=== PATIENT | male | born 1945 | race African-American/Black ===

== ENCOUNTER 2017-02-02 11:13 | Emergency (ER) | payer OTHER ==
[~2017-02-02] VITALS: Ht 180.3 cm; Wt 80.0 kg
[2017-02-02] MEDS ORDERED: SODIUM CHLORIDE 0.9% 1,000 ML IV ONE (12:25)
[2017-02-02] MEDS ORDERED: ONDANSETRON HCL 4MG/2ML VIAL IV STA (12:25)
[2017-02-02 12:45] LABS: EOSINOPHILS % 0.6 % (0.0-5.0); HEMATOCRIT. 38.8 % (42.0-52.0); HEMOGLOBIN. 12.4 g/dL (14.0-18.0); LYMPHOCYTES % 16.9 % (20.0-50.0); MEAN CORPUSCULAR HEMOGLOBIN 27.7 pg (28.0-32.0); MEAN CORPUSCULAR HGB CONC 31.9 g/dL (31.0-37.0); MEAN CORPUSCULAR VOLUME 87.1 fL (80.0-94.0); MEAN PLATELET VOLUME 9.2 fl (7.4-10.4); MONOCYTES % 6.5 % (2.0-8.0); PLATELET 247 x1000/uL (130-400); RED BLOOD CELL COUNT 4.46 mill/uL (4.7-6.1); RED CELL DISTRIBUTION WIDTH 16.2 % (11.6-14.6)
[2017-02-02 12:55] LABS: INR 1.1; PARTIAL THROMBOPLASTIN TIME 22.4 sec (24.0-34.0); PROTHROMBIN TIME 11.1 sec
[2017-02-02 13:04] LABS: ALANINE AMINOTRANSFERASE 17 IU/L (13-61); ALBUMIN 3.4 g/dL (3.4-5.0); ANION GAP 13; CALCIUM 8.4 mg/dL (8.5-10.1); CARBON DIOXIDE 29 mEq/L (21-32); CHLORIDE 104 mEq/L (98-107); INDEX HEMOLYSI 1 (1-3); INDEX ICTERIC 1 (1-4); INDEX LIPEMIC 1 (1-3); LIPASE 107 IU/L (73-393); TROPONIN I 0.04 ng/mL (0.00-0.04); UREA NITROGEN BLOOD 17 mg/dL (7-21); eGFR > 60 mL/min (>60)
[2017-02-02 14:30] LABS: CLARITY URINE TURBID (CLEAR); COLOR URINE YELLOW (YELLOW); GLUCOSE URINE TRACE (NEGATIVE); KETONES URINE TRACE (NEGATIVE); LEUKOCYTE ESTERASE URINE 3+ (NEGATIVE); NITRITE URINE NEGATIVE (NEGATIVE); OCCULT BLOOD URINE TRACE (NEGATIVE); PROTEIN URINE TRACE (NEGATIVE); SPECIFIC GRAVITY URINE 1.021 (1.005-1.030)
[2017-02-02 14:56] LABS: SQUAMOUS EPITHELIAL CELL URINE RARE /lpf (RARE/1+); WBC URINE TNTC /hpf (0-2)
[2017-02-02 14:57] LABS: BACTERIA URINE 4+
[2017-02-02] MEDS ORDERED: LEVOFLOXACIN 500MG PREMIX 100 ML IV ONE (15:45)
[2017-02-02 16:59] VITALS: BP 168/73
== END 2017-02-02 18:05 | disposition short-term general hospital (02) ==
LOC: ER 11:36
DX: N39.0 Urinary tract infection, site not specified (principal); K52.9 Noninfective gastroenteritis and colitis, unspecified; R19.7 Diarrhea, unspecified; E11.9 Type 2 diabetes mellitus without complications; I10 Essential (primary) hypertension; Z86.73 Personal history of transient ischemic attack (TIA), and cerebral infarction without residual deficits; Z88.2 Allergy status to sulfonamides
CPT/HCPCS: 36415; 71010; 80053; 81001; 82962; 83690; 84484; 85025; 85610; 85730; 87015; 87045; 87427; 87449; 87493; 89055; 93005; 96361; 96365; 96375; 99285; J1956; J2405; J7030

== ENCOUNTER 2019-01-06 07:38 | Emergency (ER) | payer OTHER ==
[~2019-01-06] VITALS: Ht 175.3 cm; Wt 65.0 kg
[2019-01-06] MEDS ORDERED: ACETAMINOPHEN 650MG SUPP PR STA (09:52)
[2019-01-06] MEDS ORDERED: SODIUM CHLORIDE 0.9% 1000ML BAG (SEPSIS BOLUS) IV ONE (10:00)
[2019-01-06 10:39] LABS: CHLORIDE 105 mEq/L (98-107)
[2019-01-06 10:47] LABS: INR 1.1
[2019-01-06 10:48] LABS: BASOPHILS % 0.5 % (0.0-2.0); EOSINOPHILS % 0.1 % (0.0-5.0); HEMATOCRIT. 40.6 % (42.0-52.0); HEMOGLOBIN. 13.3 g/dL (14.0-18.0); MEAN CORPUSCULAR HEMOGLOBIN 28.9 pg (28.0-32.0); MEAN CORPUSCULAR VOLUME 87.9 fL (80.0-94.0); MEAN PLATELET VOLUME 10.2 fl (7.4-10.4); MONOCYTES % 6.1 % (2.0-8.0); NEUTROPHILS % 85.3 % (40.0-76.0); PLATELET 209 x1000/uL (130-400); RED BLOOD CELL COUNT 4.62 mill/uL (4.7-6.1); RED CELL DISTRIBUTION WIDTH 14.6 % (11.6-14.6)
[2019-01-06 11:08] LABS: CLARITY URINE CLEAR (CLEAR); COLOR URINE YELLOW (YELLOW); KETONES URINE 2+ (NEGATIVE); LEUKOCYTE ESTERASE URINE NEGATIVE (NEGATIVE); NITRITE URINE NEGATIVE (NEGATIVE); OCCULT BLOOD URINE 1+ (NEGATIVE); PROTEIN URINE NEGATIVE (NEGATIVE); SPECIFIC GRAVITY URINE 1.019 (1.005-1.030); UROBILINOGEN URINE 0.2 E.U./dL (0.2-1.0)
[2019-01-06] MEDS ORDERED: PIPERACILLIN/TAZ 3.375G PREMIX 50 ML IV ONE (11:30)
[2019-01-06] MEDS ORDERED: VANCOMYCIN 1 G PREMIX 200 ML IV ONE (11:30)
[2019-01-06 16:05] VITALS: BP 135/91
== END 2019-01-06 17:17 | disposition short-term general hospital (02) ==
LOC: ER 07:47 → CANBEDREQ 14:21 → ER 17:17
DX: R65.21 Severe sepsis with septic shock (principal); G93.49 Other encephalopathy; I10 Essential (primary) hypertension; F03.90 Unspecified dementia, unspecified severity, without behavioral disturbance, psychotic disturbance, mood disturbance, and anxiety
CPT/HCPCS: 36415; 70450; 71045; 80053; 81003; 82962; 83605; 84145; 84484; 85025; 85610; 87040; 87086; 87804; 93005; 96361; 96365; 96368; 99291; J2543; J3370; J7030

== ENCOUNTER 2019-11-17 18:05 | Emergency (ER) | payer OTHER ==
[~2019-11-17] VITALS: Ht 180.3 cm; Wt 70.0 kg
[2019-11-17 23:48] LABS: BASOPHILS % 0.8 % (0.0-2.0); EOSINOPHILS % 1.7 % (0.0-5.0); HEMATOCRIT. 41.1 % (42.0-52.0); HEMOGLOBIN. 13.4 g/dL (14.0-18.0); LYMPHOCYTES % 29.2 % (20.0-50.0); MEAN CORPUSCULAR HEMOGLOBIN 28.4 pg (28.0-32.0); MEAN CORPUSCULAR VOLUME 87.3 fL (80.0-94.0); MEAN PLATELET VOLUME 9.4 fl (7.4-10.4); MONOCYTES % 9.8 % (2.0-8.0); NEUTROPHILS % 58.5 % (40.0-76.0); PLATELET 209 x1000/uL (130-400); RED BLOOD CELL COUNT 4.71 mill/uL (4.7-6.1)
[2019-11-17] MEDS ORDERED: DEXTROSE 50% WATER 50ML SYRINGE IV ONE (23:50)
[2019-11-17 23:56] LABS: CHLORIDE 109 mEq/L (98-107)
[2019-11-17 23:58] LABS: PROTHROMBIN TIME 10.5 sec (9.6-11.0)
[2019-11-18] MEDS ORDERED: DEXTROSE 50% WATER 50ML SYRINGE IV ONE (01:15)
[2019-11-18 01:37] VITALS: BP 155/55
== END 2019-11-18 02:37 | disposition short-term general hospital (02) ==
LOC: ER 18:05 → CANBEDREQ 11-18 02:38
DX: E11.649 Type 2 diabetes mellitus with hypoglycemia without coma (principal); D64.9 Anemia, unspecified; Z86.73 Personal history of transient ischemic attack (TIA), and cerebral infarction without residual deficits; Z88.2 Allergy status to sulfonamides
CPT/HCPCS: 36415; 80053; 82962; 85025; 99291

== ENCOUNTER 2021-01-03 14:25 | Emergency (ER) | payer OTHER ==
[~2021-01-03] VITALS: Ht 167.6 cm; Wt 66.0 kg
[2021-01-03] MEDS ORDERED: VANCOMYCIN 1 G PREMIX 200 ML IV ONE (14:45)
[2021-01-03] MEDS ORDERED: PIPERACILLIN/TAZ 3.375G PREMIX 50 ML IV ONE (14:45)
[2021-01-03] MEDS ORDERED: SODIUM CHLORIDE 0.9% 1,000 ML IV ONE ×2 (15:00→20:00)
[2021-01-03 15:53] LABS: BASOPHILS % 0.9 % (0.0-2.0); EOSINOPHILS % 4.6 % (0.0-5.0); HEMATOCRIT. 37.7 % (42.0-52.0); HEMOGLOBIN. 11.9 g/dL (14.0-18.0); LYMPHOCYTES % 28.7 % (20.0-50.0); MEAN CORPUSCULAR HEMOGLOBIN 26.3 pg (28.0-32.0); MEAN CORPUSCULAR VOLUME 83.4 fL (80.0-94.0); MEAN PLATELET VOLUME 9.2 fl (7.4-10.4); MONOCYTES % 10.2 % (2.0-8.0); NEUTROPHILS % 55.6 % (40.0-76.0); PLATELET 228 x1000/uL (130-400); RED BLOOD CELL COUNT 4.52 mill/uL (4.7-6.1); RED CELL DISTRIBUTION WIDTH 16.3 % (11.6-14.6)
[2021-01-03 15:55] LABS: CHLORIDE 107 mEq/L (98-107)
[2021-01-03 15:59] LABS: ETHANOL BLOOD < 10 mg/dL
[2021-01-03 16:03] LABS: CLARITY URINE CLEAR (CLEAR); COLOR URINE YELLOW (YELLOW); KETONES URINE TRACE (NEGATIVE); LEUKOCYTE ESTERASE URINE 1+ (NEGATIVE); NITRITE URINE NEGATIVE (NEGATIVE); OCCULT BLOOD URINE NEGATIVE (NEGATIVE); PH URINE 5.5 (4.5-8.0); PROTEIN URINE NEGATIVE (NEGATIVE); SPECIFIC GRAVITY URINE 1.016 (1.005-1.030)
[2021-01-03 16:15] LABS: INR 1.1; PROTHROMBIN TIME 11.2 sec (9.6-11.0)
[2021-01-03 16:30] LABS: *COCAINE SCREEN URINE NEGATIVE (NEGATIVE)
[2021-01-03 16:31] LABS: *AMPHETAMINES SCREEN URINE NEGATIVE (NEGATIVE); *BARBITURATES SCREEN URINE NEGATIVE (NEGATIVE); *BENZODIAZEPINES SCREEN URINE NEGATIVE (NEGATIVE); CANNABINOID URINE SCREEN NEGATIVE (NEGATIVE); METHADONE URINE SCREEN NEGATIVE (NEGATIVE); OPIATES URINE SCREEN NEGATIVE (NEGATIVE); PHENCYCLIDINE URINE SCREEN NEGATIVE (NEGATIVE)
[2021-01-03 20:00] VITALS: BP 137/61
== END 2021-01-03 20:51 | disposition short-term general hospital (02) ==
LOC: ER 14:25 → EDBEDREQ 14:51 → EDBEDREQSVC 14:51 → EDBEDREQTM 14:51 → ER 20:51 → CANBEDREQ 01-04 09:14
DX: R41.82 Altered mental status, unspecified (principal); E87.2 Acidosis; Z20.822 Contact with and (suspected) exposure to COVID-19; I95.9 Hypotension, unspecified; I69.354 Hemiplegia and hemiparesis following cerebral infarction affecting left non-dominant side; E11.9 Type 2 diabetes mellitus without complications; E78.00 Pure hypercholesterolemia, unspecified; R90.82 White matter disease, unspecified
CPT/HCPCS: 36415; 70450; 71045; 80053; 80305; 80320; 81003; 83605; 84145; 84484; 85025; 85610; 86850; 86900; 86901; 87040; 87077; 87086; 87186; 93005; 96361; 96365; 96375; 99291; C9803; J2543; J3370; U0003; G0480

== ENCOUNTER 2021-01-10 14:26 | Emergency (ER) | payer OTHER, MEDICAID ==
[~2021-01-10] VITALS: Ht 172.7 cm; Wt 64.0 kg
[2021-01-10] MEDS ORDERED: SODIUM CHLORIDE 0.9% 1,000 ML IV ONE ×2 (15:15→16:45)
[2021-01-10 16:23] LABS: EOSINOPHILS % 4.5 % (0.0-5.0); HEMATOCRIT. 35.4 % (42.0-52.0); HEMOGLOBIN. 11.2 g/dL (14.0-18.0); LYMPHOCYTES % 24.5 % (20.0-50.0); MEAN CORPUSCULAR HEMOGLOBIN 26.3 pg (28.0-32.0); MEAN CORPUSCULAR VOLUME 83.4 fL (80.0-94.0); MEAN PLATELET VOLUME 9.5 fl (7.4-10.4); MONOCYTES % 11.1 % (2.0-8.0); NEUTROPHILS % 58.9 % (40.0-76.0); PLATELET 225 x1000/uL (130-400); RED BLOOD CELL COUNT 4.25 mill/uL (4.7-6.1); RED CELL DISTRIBUTION WIDTH 16.8 % (11.6-14.6)
[2021-01-10 16:29] LABS: PROTHROMBIN TIME 10.9 sec (9.6-11.0)
[2021-01-10 16:30] LABS: CHLORIDE 109 mEq/L (98-107)
[2021-01-10] MEDS ORDERED: VANCOMYCIN 1 G PREMIX 200 ML IV NR (17:00)
[2021-01-10] MEDS ORDERED: CEFTRIAXONE 1 G PREMIX 50 ML IV NR (17:00)
[2021-01-10 18:00] VITALS: BP 103/61
== END 2021-01-10 18:15 | disposition short-term general hospital (02) ==
LOC: ER 14:31
DX: R55 Syncope and collapse (principal); E87.2 Acidosis; E11.65 Type 2 diabetes mellitus with hyperglycemia; I95.9 Hypotension, unspecified; E78.00 Pure hypercholesterolemia, unspecified; I10 Essential (primary) hypertension; Z86.73 Personal history of transient ischemic attack (TIA), and cerebral infarction without residual deficits; Z88.2 Allergy status to sulfonamides
CPT/HCPCS: 36415; 70450; 71045; 80053; 83605; 83880; 84484; 85025; 85610; 87040; 93005; 96361; 96374; 99285; J0696; J3370; J7030

== ENCOUNTER 2021-01-12 16:44 | Inpatient (IN) | payer OTHER, MEDICAID ==
[~2021-01-12] VITALS: Ht 165.1 cm; Wt 49.4 kg
[~2021-01-12 16:44] MED LIST: PIPERACILLIN/TAZ 3.375G PREMIX 50 ML IV SCH
[2021-01-12] MEDS ORDERED: SODIUM CHLORIDE 0.9% 1000ML BAG (SEPSIS BOLUS) IV ONE (17:15)
[2021-01-12 17:41] LABS: BASOPHILS % 0.7 % (0.0-2.0); EOSINOPHILS % 1.2 % (0.0-5.0); HEMOGLOBIN. 10.5 g/dL (14.0-18.0); LYMPHOCYTES % 11.2 % (20.0-50.0); MEAN CORPUSCULAR HEMOGLOBIN 25.8 pg (28.0-32.0); MEAN PLATELET VOLUME 9.6 fl (7.4-10.4); NEUTROPHILS % 79.9 % (40.0-76.0); PLATELET 222 x1000/uL (130-400); RED BLOOD CELL COUNT 4.05 mill/uL (4.7-6.1); RED CELL DISTRIBUTION WIDTH 16.5 % (11.6-14.6)
[2021-01-12 17:45] LABS: CHLORIDE 111 mEq/L (98-107); INR 1.1; PROTHROMBIN TIME 11.3 sec (9.6-11.0)
[2021-01-12] MEDS ORDERED: PIPERACILLIN/TAZ 3.375G PREMIX 50 ML IV ONE (18:45)
[2021-01-12] MEDS ORDERED: VANCOMYCIN 1 G PREMIX 200 ML IV ONE (18:45)
[2021-01-12 19:12] LABS: CLARITY URINE CLEAR (CLEAR); COLOR URINE YELLOW (YELLOW); KETONES URINE NEGATIVE (NEGATIVE); LEUKOCYTE ESTERASE URINE TRACE (NEGATIVE); NITRITE URINE NEGATIVE (NEGATIVE); OCCULT BLOOD URINE NEGATIVE (NEGATIVE); PH URINE 6.5 (4.5-8.0); PROTEIN URINE NEGATIVE (NEGATIVE); SPECIFIC GRAVITY URINE 1.011 (1.005-1.030)
[2021-01-12] MEDS ORDERED: HYDROCODONE/ACETAMINOPHEN 5/325MG TABLET PO PRN (21:30)
[2021-01-12] MEDS ORDERED: IPRATROPIUM/ALBUTEROL 0.5-3(2.5)MG/3ML NEB NEB PRN (21:30)
[2021-01-12] MEDS ORDERED: DOCUSATE SODIUM 100MG CAPSULE PO PRN (21:30)
[2021-01-12] MEDS ORDERED: ONDANSETRON HCL 4MG/2ML INJ IV PRN (21:30)
[2021-01-12] MEDS ORDERED: ACETAMINOPHEN 325MG TABLET PO PRN (21:30)
[2021-01-12] MEDS ORDERED: NA PHOS,M-B/NA PHOS,DI-BA ENEMA 118ML PR PRN (21:30)
[2021-01-12] MEDS ORDERED: MAGNESIUM/ALUMINUM HYDROXIDE/SIMETHICONE 30ML UDC PO PRN (21:30)
[2021-01-12] MEDS ORDERED: MORPHINE SULFATE 2 MG/ML CPJ (NOT FOR IM USE) IV PRN (21:30)
[2021-01-12] MEDS ORDERED: CLONIDINE 0.1MG TABLET PO PRN (21:30)
[2021-01-12] MEDS ORDERED: GUAIFENESIN 200MG/10ML SUGAR FREE UDC PO PRN (21:30)
[2021-01-12] MEDS ORDERED: HYDRALAZINE 20MG/ML VIAL IV PRN (21:30)
[2021-01-12] MEDS ORDERED: DEXTROSE 50% WATER 50ML SYRINGE IV PRN (21:30)
[2021-01-12] MEDS: SODIUM CHLORIDE 0.9% INJ 3ML FLUSH IVF SCH (21:36)
[2021-01-12] MEDS: ENOXAPARIN 40MG/0.4ML SYR SUBCUT SCH (21:40)
[2021-01-12] MEDS: DEXT 5%/0.45% NACL 1000ML 1,000 ML IV SCH (21:40)
[2021-01-12 23:31] LABS: CREATINE KINASE 65 IU/L (39-308)
[2021-01-12 23:33] LABS: CREATINE KINASE MB FRACTION 1.5 ng/mL (0.5-3.6)
[2021-01-13] VITALS (11 sets, daily range): BP systolic 109–154; BP diastolic 42–104
[2021-01-13] MEDS ORDERED: PIPERACILLIN/TAZ 3.375G PREMIX 50 ML IV SCH (04:00)
[2021-01-13] MEDS: PIPERACILLIN/TAZOBACTAM 3.375 G in DEXT 5% WATER 100 ML IV SCH ×3 (04:57→21:21)
[2021-01-13] MEDS: SODIUM CHLORIDE 0.9% INJ 3ML FLUSH IVF SCH ×3 (05:00→21:21)
[2021-01-13 05:33] LABS: *AMPHETAMINES SCREEN URINE NEGATIVE (NEGATIVE); *BARBITURATES SCREEN URINE NEGATIVE (NEGATIVE); *BENZODIAZEPINES SCREEN URINE NEGATIVE (NEGATIVE); *COCAINE SCREEN URINE NEGATIVE (NEGATIVE); METHADONE URINE SCREEN NEGATIVE (NEGATIVE); OPIATES URINE SCREEN NEGATIVE (NEGATIVE)
[2021-01-13 05:34] LABS: CANNABINOID URINE SCREEN NEGATIVE (NEGATIVE); PHENCYCLIDINE URINE SCREEN NEGATIVE (NEGATIVE)
[2021-01-13 06:38] LABS: BASOPHILS % 0.6 % (0.0-2.0); EOSINOPHILS % 2.8 % (0.0-5.0); HEMATOCRIT. 32.2 % (42.0-52.0); HEMOGLOBIN. 10.5 g/dL (14.0-18.0); LYMPHOCYTES % 23.8 % (20.0-50.0); MEAN CORPUSCULAR HEMOGLOBIN 26.5 pg (28.0-32.0); MEAN CORPUSCULAR VOLUME 81.4 fL (80.0-94.0); MEAN PLATELET VOLUME 9.5 fl (7.4-10.4); MONOCYTES % 7.4 % (2.0-8.0); NEUTROPHILS % 65.4 % (40.0-76.0); PLATELET 234 x1000/uL (130-400); RED BLOOD CELL COUNT 3.96 mill/uL (4.7-6.1); RED CELL DISTRIBUTION WIDTH 16.7 % (11.6-14.6)
[2021-01-13 06:55] LABS: CHLORIDE 111 mEq/L (98-107)
[2021-01-13 07:02] LABS: LDL CHOLESTEROL 53 mg/dL (5-100)
[2021-01-13 07:04] LABS: CREATINE KINASE 88 IU/L (39-308); CREATINE KINASE MB FRACTION 1.9 ng/mL (0.5-3.6); HDL CHOLESTEROL 42 mg/dL (40-59); T4 FREE 1.44 ng/dL (0.76-1.46)
[2021-01-13] MEDS: BLOOD SUGAR DIAGNOSTIC STRIP TEST SCH ×4 (07:30→21:20)
[2021-01-13] MEDS: INSULIN LISPRO 100 UNITS/ML SUBCUT SCH ×4 (08:00→21:00)
[2021-01-13 09:32] LABS: T4 FREE 1.44 ng/dL (0.76-1.46)
[2021-01-13] MEDS: DEXT 5%/0.45% NACL 1000ML 1,000 ML IV SCH (13:11)
[2021-01-13 17:01] LABS: CREATINE KINASE 87 IU/L (39-308)
[2021-01-13 17:03] LABS: CREATINE KINASE MB FRACTION 1.7 ng/mL (0.5-3.6)
[2021-01-13] MEDS: ENOXAPARIN 40MG/0.4ML SYR SUBCUT SCH (21:21)
[2021-01-14] VITALS (13 sets, daily range): BP systolic 115–164; BP diastolic 57–87
[2021-01-14 00:21] LABS: CREATINE KINASE 86 IU/L (39-308)
[2021-01-14 00:22] LABS: CREATINE KINASE MB FRACTION 1.2 ng/mL (0.5-3.6)
[2021-01-14] MEDS: PIPERACILLIN/TAZOBACTAM 3.375 G in DEXT 5% WATER 100 ML IV SCH ×3 (05:07→21:54)
[2021-01-14] MEDS: SODIUM CHLORIDE 0.9% INJ 3ML FLUSH IVF SCH ×3 (05:08→21:54)
[2021-01-14] MEDS: DEXT 5%/0.45% NACL 1000ML 1,000 ML IV SCH ×2 (05:08→17:29)
[2021-01-14 06:04] LABS: CREATINE KINASE 73 IU/L (39-308)
[2021-01-14 06:05] LABS: CREATINE KINASE MB FRACTION < 1.0 ng/mL (0.5-3.6)
[2021-01-14 06:29] LABS: VITAMIN B12 SERUM 356 pg/mL (211-911)
[2021-01-14] MEDS: INSULIN LISPRO 100 UNITS/ML SUBCUT SCH ×4 (08:00→21:57)
[2021-01-14] MEDS: BLOOD SUGAR DIAGNOSTIC STRIP TEST SCH ×4 (08:03→21:54)
[2021-01-14] MEDS ORDERED: IOHEXOL 350 MG/ML 200ML INFUS..BTL IV ONE (11:42)
[2021-01-14] MEDS: ENOXAPARIN 40MG/0.4ML SYR SUBCUT SCH (21:54)
[2021-01-15] VITALS (12 sets, daily range): BP systolic 112–156; BP diastolic 60–88
[2021-01-15] MEDS: SODIUM CHLORIDE 0.9% INJ 3ML FLUSH IVF SCH ×3 (05:26→22:32)
[2021-01-15] MEDS: PIPERACILLIN/TAZOBACTAM 3.375 G in DEXT 5% WATER 100 ML IV SCH ×3 (05:26→21:10)
[2021-01-15 06:04] LABS: BASOPHILS % 0.9 % (0.0-2.0); EOSINOPHILS % 2.8 % (0.0-5.0); HEMATOCRIT. 33.8 % (42.0-52.0); HEMOGLOBIN. 11.2 g/dL (14.0-18.0); LYMPHOCYTES % 18.2 % (20.0-50.0); MEAN CORPUSCULAR HEMOGLOBIN 26.8 pg (28.0-32.0); MEAN CORPUSCULAR VOLUME 81.2 fL (80.0-94.0); MEAN PLATELET VOLUME 9.3 fl (7.4-10.4); MONOCYTES % 8.4 % (2.0-8.0); NEUTROPHILS % 69.7 % (40.0-76.0); PLATELET 238 x1000/uL (130-400); RED BLOOD CELL COUNT 4.16 mill/uL (4.7-6.1); RED CELL DISTRIBUTION WIDTH 16.4 % (11.6-14.6)
[2021-01-15 06:18] LABS: CHLORIDE 108 mEq/L (98-107)
[2021-01-15] MEDS: BLOOD SUGAR DIAGNOSTIC STRIP TEST SCH ×4 (07:48→21:00)
[2021-01-15] MEDS: INSULIN LISPRO 100 UNITS/ML SUBCUT SCH ×4 (08:24→20:47)
[2021-01-15] MEDS: ENOXAPARIN 40MG/0.4ML SYR SUBCUT SCH (22:32)
[2021-01-16] VITALS (11 sets, daily range): BP systolic 119–158; BP diastolic 33–109
[2021-01-16] MEDS: PIPERACILLIN/TAZOBACTAM 3.375 G in DEXT 5% WATER 100 ML IV SCH ×3 (05:49→21:10)
[2021-01-16] MEDS: LORAZEPAM 2MG/ML CPJ IV PRN ×2 (05:50→22:03)
[2021-01-16] MEDS: SODIUM CHLORIDE 0.9% INJ 3ML FLUSH IVF SCH ×3 (06:08→21:53)
[2021-01-16] MEDS: BLOOD SUGAR DIAGNOSTIC STRIP TEST SCH ×4 (08:16→21:52)
[2021-01-16] MEDS: INSULIN LISPRO 100 UNITS/ML SUBCUT SCH ×4 (08:58→21:11)
[2021-01-16] MEDS: DIPHENHYDRAMINE 50MG/ML VIAL IV PRN ×2 (11:15→21:10)
[2021-01-16] MEDS: ENOXAPARIN 40MG/0.4ML SYR SUBCUT SCH (21:24)
[2021-01-17] VITALS (12 sets, daily range): BP systolic 107–158; BP diastolic 56–82
[2021-01-17] MEDS: PIPERACILLIN/TAZOBACTAM 3.375 G in DEXT 5% WATER 100 ML IV SCH ×3 (05:46→21:26)
[2021-01-17] MEDS: SODIUM CHLORIDE 0.9% INJ 3ML FLUSH IVF SCH ×3 (06:28→21:27)
[2021-01-17] MEDS: BLOOD SUGAR DIAGNOSTIC STRIP TEST SCH ×4 (08:26→21:27)
[2021-01-17] MEDS: INSULIN LISPRO 100 UNITS/ML SUBCUT SCH ×3 (08:58→21:27)
[2021-01-17] MEDS: DEXT 5%/0.45% NACL 1000ML 1,000 ML IV SCH (09:02)
[2021-01-17] MEDS ORDERED: INSULIN LISPRO 100 UNITS/ML SUBCUT SCH (12:30)
[2021-01-17] MEDS: ENOXAPARIN 40MG/0.4ML SYR SUBCUT SCH (21:30)
[2021-01-18] VITALS (9 sets, daily range): BP systolic 122–146; BP diastolic 63–89
[2021-01-18] MEDS: DEXT 5%/0.45% NACL 1000ML 1,000 ML IV SCH ×2 (02:00→10:50)
[2021-01-18] MEDS: SODIUM CHLORIDE 0.9% INJ 3ML FLUSH IVF SCH ×3 (05:52→21:00)
[2021-01-18] MEDS: PIPERACILLIN/TAZOBACTAM 3.375 G in DEXT 5% WATER 100 ML IV SCH (05:52)
[2021-01-18] MEDS: BLOOD SUGAR DIAGNOSTIC STRIP TEST SCH ×4 (07:30→21:00)
[2021-01-18] MEDS: ASPIRIN 81MG TABLET PO SCH (09:02)
[2021-01-18] MEDS: INSULIN LISPRO 100 UNITS/ML SUBCUT SCH ×4 (09:04→21:00)
[2021-01-19] VITALS: BP 140/60
[2021-01-19] MEDS: ENOXAPARIN 40MG/0.4ML SYR SUBCUT SCH ×2 (00:21→23:27)
[2021-01-19 04:00] VITALS: BP 140/76
[2021-01-19] MEDS: DEXT 5%/0.45% NACL 1000ML 1,000 ML IV SCH ×2 (04:16→20:10)
[2021-01-19] MEDS: SODIUM CHLORIDE 0.9% INJ 3ML FLUSH IVF SCH ×3 (05:13→21:55)
[2021-01-19] MEDS: BLOOD SUGAR DIAGNOSTIC STRIP TEST SCH ×4 (07:55→21:55)
[2021-01-19] MEDS: INSULIN LISPRO 100 UNITS/ML SUBCUT SCH ×4 (07:56→21:55)
[2021-01-19 08:00] VITALS: BP 154/78
[2021-01-19] MEDS: ASPIRIN 81MG TABLET PO SCH (08:40)
[2021-01-19] MEDS: DIPHENHYDRAMINE 50MG/ML VIAL IV PRN (10:55)
[2021-01-19 12:00] VITALS: BP 139/75
[2021-01-19 16:00] VITALS: BP 141/86
[2021-01-19 20:00] VITALS: BP 155/99
[2021-01-20] VITALS: BP 155/99
[2021-01-20 04:00] VITALS: BP 149/68
[2021-01-20] MEDS: SODIUM CHLORIDE 0.9% INJ 3ML FLUSH IVF SCH ×3 (06:34→21:39)
[2021-01-20] MEDS: BLOOD SUGAR DIAGNOSTIC STRIP TEST SCH ×4 (07:17→21:47)
[2021-01-20] MEDS: INSULIN LISPRO 100 UNITS/ML SUBCUT SCH ×4 (07:17→21:40)
[2021-01-20 07:58] VITALS: BP 114/83
[2021-01-20] MEDS: ASPIRIN 81MG TABLET PO SCH (08:30)
[2021-01-20] MEDS ORDERED: CLOPIDOGREL 75MG TABLET PO SCH (09:00)
[2021-01-20 12:00] VITALS: BP 141/99
[2021-01-20 15:46] VITALS: BP 139/78
[2021-01-20] MEDS: DEXT 5%/0.45% NACL 1000ML 1,000 ML IV SCH (16:27)
[2021-01-20 20:00] VITALS: BP 171/92
[2021-01-20] MEDS: ENOXAPARIN 40MG/0.4ML SYR SUBCUT SCH (21:39)
[2021-01-21 00:50] VITALS: BP 154/96
[2021-01-21 04:00] VITALS: BP 137/76
[2021-01-21] MEDS: SODIUM CHLORIDE 0.9% INJ 3ML FLUSH IVF SCH ×3 (06:02→22:28)
[2021-01-21] MEDS: DEXT 5%/0.45% NACL 1000ML 1,000 ML IV SCH ×2 (06:03→22:28)
[2021-01-21] MEDS: INSULIN LISPRO 100 UNITS/ML SUBCUT SCH ×3 (06:43→20:53)
[2021-01-21] MEDS: BLOOD SUGAR DIAGNOSTIC STRIP TEST SCH ×3 (06:44→20:49)
[2021-01-21 08:00] VITALS: BP 156/72
[2021-01-21] MEDS: ASPIRIN 81MG TABLET PO SCH (08:54)
[2021-01-21 11:46] VITALS: BP 135/76
[2021-01-21 20:00] VITALS: BP 118/53
[2021-01-21] MEDS: ENOXAPARIN 40MG/0.4ML SYR SUBCUT SCH (22:28)
[2021-01-22] VITALS: BP 151/61
[2021-01-22 04:00] VITALS: BP 125/75
[2021-01-22] MEDS: SODIUM CHLORIDE 0.9% INJ 3ML FLUSH IVF SCH ×3 (05:04→21:57)
[2021-01-22] MEDS: BLOOD SUGAR DIAGNOSTIC STRIP TEST SCH ×4 (06:30→21:00)
[2021-01-22 08:00] VITALS: BP 151/77
[2021-01-22] MEDS: ASPIRIN 81MG TABLET PO SCH (08:17)
[2021-01-22] MEDS: INSULIN LISPRO 100 UNITS/ML SUBCUT SCH ×4 (08:19→22:16)
[2021-01-22 12:00] VITALS: BP 137/78
[2021-01-22] MEDS: DEXT 5%/0.45% NACL 1000ML 1,000 ML IV SCH (15:50)
[2021-01-22 16:00] VITALS: BP 163/80
[2021-01-22 20:00] VITALS: BP 148/83
[2021-01-22] MEDS: ENOXAPARIN 40MG/0.4ML SYR SUBCUT SCH (22:03)
[2021-01-23] VITALS: BP 121/76
[2021-01-23 04:00] VITALS: BP 166/88
[2021-01-23] MEDS: SODIUM CHLORIDE 0.9% INJ 3ML FLUSH IVF SCH ×2 (05:18→14:00)
[2021-01-23] MEDS: BLOOD SUGAR DIAGNOSTIC STRIP TEST SCH ×3 (07:46→17:46)
[2021-01-23] MEDS: INSULIN LISPRO 100 UNITS/ML SUBCUT SCH ×3 (07:50→17:19)
[2021-01-23] MEDS: DEXT 5%/0.45% NACL 1000ML 1,000 ML IV SCH (08:41)
[2021-01-23] MEDS: ASPIRIN 81MG TABLET PO SCH (08:41)
[2021-01-23 08:56] LABS: BASOPHILS % 1.1 % (0.0-2.0); EOSINOPHILS % 6.1 % (0.0-5.0); HEMATOCRIT. 34.1 % (42.0-52.0); HEMOGLOBIN. 10.8 g/dL (14.0-18.0); LYMPHOCYTES % 33.2 % (20.0-50.0); MEAN CORPUSCULAR HEMOGLOBIN 25.9 pg (28.0-32.0); MEAN CORPUSCULAR VOLUME 82.1 fL (80.0-94.0); MEAN PLATELET VOLUME 8.7 fl (7.4-10.4); MONOCYTES % 11.9 % (2.0-8.0); NEUTROPHILS % 47.7 % (40.0-76.0); PLATELET 288 x1000/uL (130-400); RED BLOOD CELL COUNT 4.16 mill/uL (4.7-6.1); RED CELL DISTRIBUTION WIDTH 17.2 % (11.6-14.6)
[2021-01-23 09:05] LABS: CHLORIDE 111 mEq/L (98-107)
[2021-01-23] MEDS ORDERED: HYDRALAZINE 10 MG in SODIUM CHLORIDE 0.9% 49.5 ML IV PRN (13:30)
[2021-01-23 20:00] VITALS: BP 159/75
== END 2021-01-23 21:45 | DRG 871 ==
LOC: ER 16:44 → MICUSO 19:04 → 5EST 23:22 → 4WST 01-20 15:05 → 6EST 01-21 16:23
PROVIDERS: ADMIT Internal Medicine; ATTEND Internal Medicine
PROC: 4A10X4Z Monitoring of Central Nervous Electrical Activity, External Approach (ICD-10-PCS; principal; 2021-01-14)
DX: A41.9 Sepsis, unspecified organism (principal); G93.41 Metabolic encephalopathy; E46 Unspecified protein-calorie malnutrition; Z68.1 Body mass index [BMI] 19.9 or less, adult; E87.2 Acidosis; E44.1 Mild protein-calorie malnutrition; R65.20 Severe sepsis without septic shock; E78.5 Hyperlipidemia, unspecified; F03.90 Unspecified dementia, unspecified severity, without behavioral disturbance, psychotic disturbance, mood disturbance, and anxiety; I69.398 Other sequelae of cerebral infarction; I45.10 Unspecified right bundle-branch block; G93.89 Other specified disorders of brain; Z20.822 Contact with and (suspected) exposure to COVID-19; I95.9 Hypotension, unspecified; G90.8 Other disorders of autonomic nervous system; I11.9 Hypertensive heart disease without heart failure; D64.9 Anemia, unspecified; E11.9 Type 2 diabetes mellitus without complications; Z87.891 Personal history of nicotine dependence; Z88.2 Allergy status to sulfonamides
CPT/HCPCS: 36415; 70551; 71045; 71250; 71275; 74176; 80048; 80053; 80061; 80305; 81003; 82550; 82553; 82607; 82962; 83036; 83605; 83880; 84145; 84439; 84443; 84484; 85025; 85379; 87426; 92610; 93005; 93306; 93970; 95816; 97116; 97162; 97530; 97535; 99291; J0360; J1200; J1650; J1815; J2060; J2270; J2543; J3370; J7030; J7060; Q9967